=== PATIENT | female | born 1965 | race Caucasian/White ===

== ENCOUNTER → 2016-04-16 | Outpatient (CLI) | payer BC ==
--- NOTE | 2016-04-16 10:11 | USB ---
Reason for exam: clinical finding. History: Patient has history of breast cancer at age 49 and had first child at age 32. Family history of breast cancer in mother at age 40, breast cancer in maternal aunt at age 50, and breast cancer in paternal aunt at age 50. Malignant US biopsy breast VAD RT of the right breast, January 10, 2015. Mastectomy of both breasts, April 11, 2014. Lumpectomy of the right breast, 2014. Silicone gel implants in both breasts, November 2013. Taking estrogen for 10 months beginning at age 48. Indicated problem(s): other indicated problem in the left breast. Physical Findings: Nurse Summary: bilateral mastectomy with implants, prominent bilateral axillary nodes, all soft, moveable (nurse ts). US Breast RT Right breast ultrasound including all four quadrants, the retroareolar region and axilla demonstrates 0.4 x 0.3 x 0.5cm oval, cystic lesion at 6 o'clock appears unchanged, possibly an oil cyst and a 0.8 x 0.6 x 1.0cm oval, solid node at axilla versus 7 x 6 x 10mm previously, not significantly changed. Given the effacement of the fatty hilum, this should be reassessed again to ensure continued stability. These results were verbally communicated with the patient and result sheet given to the patient on 04/16/16. ASSESSMENT: Probably benign, BI-RAD 3 RECOMMENDATION: Ultrasound of the right breast in 6 months. MTDD
== END | disposition home or self-care (01) ==
LOC: RADUSWWP 09:05
PROVIDERS: ATTEND Surgery
DX: Z85.3 Personal history of malignant neoplasm of breast (principal)

== ENCOUNTER → 2016-10-15 | Outpatient (CLI) | payer BC ==
--- NOTE | 2016-10-19 14:50 | USB ---
Reason for exam: follow-up at short interval from prior study. History: Patient has history of breast cancer at age 49 and had first child at age 32. Family history of breast cancer in mother at age 40, breast cancer in maternal aunt at age 50, and breast cancer in paternal aunt at age 50. Malignant US biopsy breast VAD RT of the right breast, January 10, 2015. Mastectomy of both breasts, April 11, 2014. Lumpectomy of the right breast, 2014. Silicone gel implants in both breasts, November 2013. Taking estrogen for 10 months beginning at age 48. Physical Findings: Nurse did not find any significant physical abnormalities on exam. US Breast RT Right breast ultrasound includes all four quadrants, the retroareolar region and axilla. Finding demonstrate a 4 x 3 x 5mm oval, mixed lesion at 6 o'clock unchanged from previous, a 5mm oval lymph node at axilla tail, a 4mm oval lymph node at axilla tail, and a 6mm oval lymph node at axilla tail unchanged from previous. These results were verbally communicated with the patient and result sheet given to the patient on 10/15/16. ASSESSMENT: Probably benign, BI-RAD 3 RECOMMENDATION: Ultrasound of the right breast in 6 months.
== END | disposition home or self-care (01) ==
LOC: RADUSWWP 14:15
PROVIDERS: ATTEND Internal Medicine Hematology & Oncology
DX: C50.211 Malignant neoplasm of upper-inner quadrant of right female breast (principal)

== ENCOUNTER → 2017-04-15 | Outpatient (CLI) | payer OTHER ==
--- NOTE | 2017-04-18 08:32 | USB ---
Reason for exam: follow-up at short interval from prior study. History: Patient has history of breast cancer at age 49 and had first child at age 32. Family history of breast cancer in mother at age 40, breast cancer in maternal aunt at age 50, and breast cancer in paternal aunt at age 50. Malignant US biopsy breast VAD RT of the right breast, January 10, 2015. Mastectomy of both breasts, April 11, 2014. Lumpectomy of the right breast, 2014. Silicone gel implants in both breasts, November 2013. Taking estrogen for 10 months beginning at age 48. Physical Findings: Nurse did not find any significant physical abnormalities on exam. US Breast RT Right breast ultrasound includes all four quadrants, the retroareolar region and axilla. Finding demonstrates a 0.5 x 0.3 x 0.5cm oval, cystic lesion at 6 o'clock and a 0.7cm node at the axilla with multiple other nodes, stable. These results were verbally communicated with the patient and result sheet given to the patient on 04/15/17. ASSESSMENT: Benign, BI-RAD 2 RECOMMENDATION: Clinical management of the right breast. Manage patient on a clinical basis.
== END | disposition home or self-care (01) ==
LOC: RADUSWWP 15:15
PROVIDERS: ATTEND Internal Medicine Hematology & Oncology
DX: C50.211 Malignant neoplasm of upper-inner quadrant of right female breast (principal)

== ENCOUNTER 2017-07-18 08:09 | Day surgery (SDC) | payer OTHER ==
[2017-07-14 15:20] VITALS: BMI 24.3
[~2017-07-18 08:09] MED LIST: Pre Op ABX Message 1 EACH MISC MISCELLANE ONE
[2017-07-18] MEDS ORDERED: ONDANSETRON 4 MG/2 ML VIAL ONE (09:39)
[2017-07-18 09:41] VITALS: RESP 16; TEMP 97.3
[2017-07-18] MEDS ORDERED: LACTATED RINGERS 1,000 ML IV ONE (09:41)
[2017-07-18 09:43] LABS: Glucose,Whole Blood 80 mg/dL (75-99)
[2017-07-18] MEDS ORDERED: LIDOCAINE 1% 20 ML VIAL (10MG/ML) FOR IV START INTRADERMA ONE (09:44)
[2017-07-18] MEDS ORDERED: ONDANSETRON 4 MG/2 ML VIAL IVP ONE (09:44)
[2017-07-18] MEDS ORDERED: HYDROCORTISONE SUCCINATE 100 MG/2 ML VIAL IV ONE (09:45)
[2017-07-18] MEDS ORDERED: HEPARIN SODIUM,PORCINE 5,000 UNIT/ML 1 ML VIAL SQ ONE (09:45)
[2017-07-18] MEDS ORDERED: BUPIVACAINE (PF) 0.25% 30 ML VIAL SQ ONE ×3 (09:46→10:11)
[2017-07-18] MEDS ORDERED: MIDAZOLAM 2 MG/2 ML VIAL ONE (09:55)
[2017-07-18] MEDS ORDERED: LIDOCAINE 1% INJ 10MG/ML (20 ML MDV) ONE (09:55)
[2017-07-18] MEDS ORDERED: fentaNYL (PF) 50 MCG/ML 2 ML AMP ONE (09:55)
[2017-07-18] MEDS ORDERED: PROPOFOL 10 MG/ML 20 ML VIAL IV ONE (09:55)
--- NOTE | 2017-07-18 10:29 | P.OP ---
Date of Procedure: 07/18/17 Preoperative Diagnosis: Metastatic breast cancer Postoperative Diagnosis: Same, subcu nodules Procedure(s) Performed: Resection subcu nodule right upper quadrant Anesthesia: MAC Surgeon: Harriet Neumann Estimated Blood Loss (ml): 2 IV fluids (ml): 500 Pathology: other (Subcu nodules sent for ER/GA and HER-2/juan status) Condition: stable Disposition: PACU Indications for Procedure: Metastatic breast cancer Description of Procedure: Patient was taken to the operating room and following sedation the right upper quadrant was prepped and draped in a sterile fashion. Percent lidocaine was used to anesthetize the area of concern. Incision was carried through the skin and subcutaneous tissue to the subcu tissue nodule approximately 1 cm in size was identified. Wide excision was performed around this lesion was actually 8 mm x 8 mm. After assured that hemostasis was attained the deep subcu Vicryl suture was placed this was followed by a 4-0 Monocryl Steri-Strips were applied the patient tolerated the procedure in stable condition the specimen was sent to pathology for evaluation. Prior to procedure the case was discussed with pathology. The specimen was sent in formalin for ER/GA and HER-2/juan markers on the specimen. All instrument and sponge counts were correct at the end of the case. The patient tolerated the procedure in stable condition.
--- NOTE | 2017-07-18 10:31 | P.DS ---
Providers Attending physician: Harriet Neumann Primary care physician: Stated None Plan - Discharge Summary New Discharge Prescriptions: No Action Omeprazole [PriLOSEC] 20 mg PO QAM Albuterol Inhaler [Ventolin Hfa Inhaler] 2 puff INHALATION Q6HR PRN PRN Reason: Shortness Of Breath Acetaminophen Tab [Tylenol Tab] 650 mg PO Q4H PRN PRN Reason: Pain Dexamethasone 6 mg PO QAM Discharge Medication List Acetaminophen Tab [Tylenol Tab] 650 mg PO Q4H PRN 07/14/17 [History] Albuterol Inhaler [Ventolin Hfa Inhaler] 2 puff INHALATION Q6HR PRN 07/14/17 [ History] Dexamethasone 6 mg PO QAM 07/14/17 [History] Omeprazole [PriLOSEC] 20 mg PO QAM 07/14/17 [History] Follow up Appointment(s)/Referral(s): Harriet Neumann MD [STAFF PHYSICIAN] - 2 Weeks Activity/Diet/Wound Care/Special Instructions: Do not drive today may shower after 48 hours Discharge Disposition: HOME SELF-CARE
[2017-07-18 11:44] VITALS: BP 117/77; PULSE 60
== END 2017-07-18 11:46 | disposition home or self-care (01) ==
LOC: OR 08:09
PROVIDERS: ATTEND Surgery
DX: C50.919 Malignant neoplasm of unspecified site of unspecified female breast (principal); C79.2 Secondary malignant neoplasm of skin; J45.909 Unspecified asthma, uncomplicated; J98.8 Other specified respiratory disorders; Z92.3 Personal history of irradiation; Z90.13 Acquired absence of bilateral breasts and nipples; K21.9 Gastro-esophageal reflux disease without esophagitis; Z79.899 Other long term (current) drug therapy; Z88.0 Allergy status to penicillin; Z88.8 Allergy status to other drugs, medicaments and biological substances
CPT/HCPCS: 81025; 88305; 88342; 88341; 11602; J2250; J1644; J1720; J2405; J2001; J3010; J2704